=== PATIENT | male | born 1965 | race African-American/Black ===

== ENCOUNTER 2018-07-12 17:59 | Inpatient (IN) | payer OTHER ==
--- NOTE | 2018-07-12 18:22 | PDOC ---
Rapid Medical Evaluation Time Seen by Provider: 07/12/18 18:20 Medical Evaluation: Allergies Allergy/AdvReac Type Severity Reaction Status Date / Time Iodinated Contrast- Oral and Allergy Verified 07/12/18 18:21 IV Dye iodine Allergy Verified 07/12/18 18:21 07/12/18 18:21 I performed a brief in-person evaluation of this patient. Chief complaint: Splinter x >1 month left 4th finger swelling, abnormal xray today directed to come to ED Pertinent physical exam findings: Left distal phalanx swelling and discoloration I have ordered the following: None Patient to proceed to the ED for further evaluation. 07/12/18 18:22 Discharge Disposition - Diagnosis Foreign body (FB) in soft tissue - Referrals Referrals: Alia Ontiveros MD [Primary Care Provider] - - Patient Instructions - Post Discharge Activity
--- NOTE | 2018-07-12 19:22 | PDOC ---
Attending Attestation - HPI HPI: The patient is a 53 year old male, with a significant PMH of HTN, who presents to the emergency department today complaining of left fourth digit swelling. Patient reports getting a splinter in this finger 5 months ago, which was never properly removed. He endorses swelling, bleeding, and mild paresthesia. Patient s PCP referred him to come to the ED to have an X-Ray of his finger. The patient denies chest pain, shortness of breath, headache and dizziness. Denies fever, chills, nausea, vomit, diarrhea and constipation. Denies dysuria, frequency, urgency and hematuria. Allergies: Iodine Past surgical history: None reported Social history: Occasional EtOh consumption PCP: Dr. Alia Ontiveros 07/12/18 20:49 - Physicial Exam PE: GENERAL: The patient is in no acute distress. HEAD: Normal with no signs of trauma. EYES: PERRLA, EOMI, sclera anicteric, conjunctiva clear. ENT: Ears normal, nares patent, oropharynx clear without exudates. Moist mucous membranes. NECK: Normal range of motion, supple without lymphadenopathy, JVD, or masses. LUNGS: Breath sounds equal, clear to auscultation bilaterally. No wheezes, and no crackles. HEART:Regular rate and rhythm, normal S1 and S2 without murmur, rub or gallop. ABDOMEN: Soft, nontender, normoactive bowel sounds. No guarding, no rebound. No masses palpable. EXTREMITIES: +4th left distal phalanx approximately 3 its normal size with distal puncture wound. Normal range of motion. No cyanosis. No erythema, or tenderness. NEUROLOGICAL: Cranial nerves II through XII grossly intact. Normal speech. No focal neurological deficits. MUSCULOSKELETAL: Back non-tender to palpation, no CVA tenderness SKIN: Warm, Dry, normal turgor, no rashes or lesions noted. 07/12/18 20:49 - Medical Decision Making Documentation prepared by DIMAS Pat, acting as medical/surgery registered nurse for Elin Norman MD. 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 He was seen by his PMD who attempted to I & D and remove the splinter but was unsuccessful The wound was non healing No fevers or chills Was seen at urgent care 2 days ago, where he was told that his finger could not have an infection because it did not hurt and there was no expressible purulence Was sent to radiology for outpatient Xray Sent to the ER once images seen PMD: [facility] 07/12/18 21:05 EKG - NSR rate of 94 bpm, axis nml, intervals nml, no st elevation or depression , t wave inversion III, aVF 07/12/18 21:07 Laboratory Tests 07/12/18 07/12/18 07/12/18 19:30 19:30 19:30 WBC 10.4 H Hgb 16.2 Hct 47.1 Plt Count 241 ESR INR 0.92 BUN 19 H Creatinine 1.1 C-Reactive Protein 07/12/18 07/12/18 19:30 19:30 WBC Hgb Hct Plt Count ESR 9 INR BUN Creatinine C-Reactive Protein < 0.3 Vanc/Cefepime Admit to treat for Osteomyelitis <Elin Norman - Last Filed: 07/14/18 00:12>
--- NOTE | 2018-07-12 20:02 | PDOC ---
History of Present Illness - General Chief Complaint: Injury Stated Complaint: Injury Time Seen by Provider: 07/12/18 18:20 History Source: Patient Exam Limitations: No Limitations - History of Present Illness Initial Comments: 07/12/18 19:58 Pt is a 53yo M with PMH of HTN presenting to ED for L fourth digit swelling. Pt states that about 5 months ago he got a splinter in his finger, he could not find it or take it out so he let it be. He states that the finger started to swell and bleed. He would put liquid bandages on it to stop the bleeding. He went to his PMD office who had him come here for xray of the finger. Pt states he was told by the radiologist to come to the emergency room. Pt endorses some numbness. He denies pain, decreased ROM, fevers, chills, abdominal pain, sob, chest pain, cough, headaches, other joint pain, rashes. PMD: [facility] PMH: htn PSH: none Meds: amlodipine Allergies: iodine Social: occasional alcohol use Past History - Past Medical History Allergies/Adverse Reactions: Allergies Allergy/AdvReac Type Severity Reaction Status Date / Time Iodinated Contrast- Oral and Allergy Verified 07/12/18 18:21 IV Dye iodine Allergy Verified 07/12/18 18:21 Home Medications: Ambulatory Orders Amlodipine Besylate 10 mg PO DAILY 07/12/18 COPD: No HTN: Yes - Immunization History Immunization Up to Date: Yes - Suicide/Smoking/Psychosocial Hx Smoking History: Never smoked Hx Alcohol Use: No Drug/Substance Use Hx: No Review of Systems - Review of Systems Constitutional: No: Chills, Fever HEENTM: No: Symptoms Reported Respiratory: No: Cough, Shortness of Breath Cardiac (ROS): No: Chest Pain, Lightheadedness, Palpitations, Syncope ABD/GI: No: Symptoms Reported : No: Symptoms Reported Musculoskeletal: Yes: See HPI, Other (L 4th digit tip sweling, numbness) Integumentary: Yes: See HPI Neurological: Yes: See HPI *Physical Exam - Vital Signs Last Vital Signs Temp Pulse Resp BP Pulse Ox 98.2 F 110 H 16 156/103 H 98 07/12/18 18:21 07/12/18 18:21 07/12/18 18:21 07/12/18 18:21 07/12/18 18:21 - Physical Exam General Appearance: Yes: Nourished, Appropriately Dressed. No: Apparent Distress HEENT: positive: EOMI, ESHA Neck: positive: Trachea midline, Supple. 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, Fully Oriented, Alert, Normal Mood/ Affect, Normal Response, Motor Strength 5/5 Moderate Sedation - Procedure Monitoring Vital Signs: Procedure Monitoring Vital Signs Temperature 98.2 F 07/12/18 18:21 Pulse Rate 110 H 07/12/18 18:21 Respiratory Rate 16 07/12/18 18:21 Blood Pressure 156/103 H 07/12/18 18:21 O2 Sat by Pulse Oximetry (%) 98 07/12/18 18:21 ED Treatment Course - LABORATORY CBC & Chemistry Diagram: 07/12/18 19:30 07/12/18 19:30 - RADIOLOGY Radiology Studies Ordered: Category Date Time Status CHEST X-RAY PORTABLE* [RAD] Stat Radiology 07/12/18 19:24 Ordered Medical Decision Making - Medical Decision Making 07/12/18 20:02 Pt is a 53yo M with PMH of HTN presenting to ED for L fourth digit swelling. Pt states that about 5 months ago he got a splinter in his finger, he could not find it or take it out so he let it be. He states that the finger started to swell and bleed. He would put liquid bandages on it to stop the bleeding. He went to his PMD office who had him come here for xray of the finger. Pt states he was told by the radiologist to come to the emergency room. Pt endorses some numbness. He denies pain, decreased ROM, fevers, chills, abdominal pain, sob, chest pain, cough, headaches, other joint pain, rashes. Vitals: tachycardia PE: swelling and paleness of L fourth digit with punctate wound covered by scab. Xray showed osteomyelitis v. proliferative lesion. -partial sepsis workup -vanc, cefepime -admit *DC/Admit/Observation/Transfer Diagnosis at time of Disposition: Osteomyelitis Qualifiers: Osteomyelitis type: unspecified type Osteomyelitis location: other site Qualified Code(s): M86.9 - Osteomyelitis, unspecified - Discharge Dispostion Condition at time of disposition: Good Decision to Admit order: Yes - Referrals - Patient Instructions - Post Discharge Activity
[2018-07-12 20:10] LABS: BASO % 0.7 % (0-2.0); EOS % 3.1 % (0-4.5); HEMATOCRIT 47.1 % (35.4-49); HEMOGLOBIN 16.2 GM/dL (11.7-16.9); LYMPH % 32.9 % (8-40); MCH 30.7 pg (25.7-33.7); MCHC 34.3 g/dl (32.0-35.9); MEAN CELL VOLUME 89.6 fl (80-96); MONO % 8.6 % (3.8-10.2); NEUT % 54.7 % (42.8-82.8); PLATELET COUNT 241 K/MM3 (134-434); RBC 5.26 M/mm3 (4.00-5.60); RDW 13.8 % (11.9-15.9); WHITE BLOOD COUNT 10.4 K/mm3 (4.0-10.0)
[2018-07-12] MEDS ORDERED: VANCOMYCIN 1 GM in D5W (PRE-DOCKED) 1,000 MG/250 ML IVPB ONE (20:19)
[2018-07-12] MEDS ORDERED: LACTATED RINGERS SOLUTION 1000 ML INFUS.BAG IV ONE (20:19)
[2018-07-12] MEDS ORDERED: CEFEPIME HCL/D5W 2 GM/50 ML BAG IVPB ONE (20:20)
[2018-07-12 20:29] LABS: INR 0.92 (0.83-1.09); PROTHROMBIN TIME (PATIENT) 10.9 SEC (9.7-13.0)
[2018-07-12 20:31] LABS: ACTIVATED PTT 31.7 SECONDS (25.2-36.5)
[2018-07-12] MEDS ORDERED: VANCOMYCIN 1 GRAM (PRE-DOCKED) 1,000 MG/250 ML BAG IVPB ONE (20:50)
[2018-07-12 21:01] LABS: ALBUMIN 4.1 g/dl (3.4-5.0); ALK PHOS 86 U/L (45-117); ANION GAP 10 MMOL/L (8-16); BILIRUBIN,TOTAL 0.4 mg/dL (0.2-1); BLOOD UREA NITROGEN 19 mg/dL (7-18); CALCIUM 9.1 mg/dL (8.5-10.1); CHLORIDE 106 mmol/L (98-107); CO2 23 mmol/L (21-32); CREATININE 1.1 mg/dL (0.55-1.3); GLUCOSE,RANDOM 92 mg/dL (74-106); POTASSIUM 3.8 mmol/L (3.5-5.1); SGOT/AST 20 U/L (15-37); SGPT/ALT 22 U/L (13-61); SODIUM 139 mmol/L (136-145); TOT PROT 7.9 g/dl (6.4-8.2)
[2018-07-13 03:07] LABS: URINE APPEARANCE CLEAR; URINE BILIRUBIN NEGATIVE (<2.0 mg/dL); URINE COLOR STRAW; URINE GLUCOSE (UA) NEGATIVE (NEGATIVE); URINE KETONE NEGATIVE (NEGATIVE); URINE LEUK ESTERASE NEGATIVE (NEGATIVE); URINE NITRITE NEGATIVE (NEGATIVE); URINE PROTEIN NEGATIVE (NEGATIVE); URINE UROBILINOGEN NEGATIVE mg/dL (0.2-1.0)
[2018-07-13 04:25] VITALS: BMI 33.3
--- NOTE | 2018-07-13 09:53 | HP ---
DATE OF ADMISSION: 07/12/2018 DATE OF DICTATION: 07/13/2018 HISTORY: This is a 53-year-old male known to have hypertension status post orchiectomy left for cancer many years ago. He came to the emergency room. Seen by me before with an infection on the tip of the left index finger. He had a foreign body there a few months ago. At that time, it was treated with antibiotics then he noticed the swelling at the tip of the ring finger. X-ray was done. It showed osteomyelitis, so he came to the ER and got admitted. 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 Not sure why. Not a smoker. No alcohol abuse. PHYSICAL EXAMINATION: Vital Signs: BP 130/80, pulse 72, respirations 20, temperature 98. HEENT: Unremarkable. Neck: Supple. No JVD. Lungs: Clear. Heart: S1, S2 normal. No S3, S4. Abdomen: Soft. Extremities: Legs, no edema. Left hand ring finger, at the tip there is swelling. Also has marking on the middle of the finger. No oozing, pus. DIAGNOSTIC DATA: Lab report: WBC 10.4, hemoglobin 16, platelet count 241. Chemistry: Electrolytes are normal. Creatinine 1.1. Blood sugar 92. C-reactive protein is 0.3. Chest x-ray negative. FINAL DIAGNOSES: 1. Osteomyelitis, left ring finger. 2. Hypertension. PLAN: IV antibiotics. ID consult. We will follow. LUZ GILBERT M.D. [id number]
[2018-07-13] MEDS: CEFAZOLIN 1 GM/D5W 1 GM/50 ML BAG IVPB SCH ×2 (11:25→18:34)
--- NOTE | 2018-07-13 13:14 | EKG ---
Test Reason : Blood Pressure : / mmHG Vent. Rate : 094 BPM Atrial Rate : 094 BPM P-R Int : 124 ms QRS Dur : 092 ms QT Int : 356 ms P-R-T Axes : 048 050 -14 degrees QTc Int : 445 ms NORMAL SINUS RHYTHM POSSIBLE ANTERIOR INFARCT , AGE UNDETERMINED T WAVE ABNORMALITY, CONSIDER INFERIOR ISCHEMIA ABNORMAL ECG WHEN COMPARED WITH ECG OF 15-OCT-2004 01:13, NO SIGNIFICANT CHANGE WAS FOUND Confirmed by MD REINALDO, SAVANA ([id number]) on 07/13/2018 1:14:01 PM Referred By: Confirmed By:SAVANA NAJERA MD
--- NOTE | 2018-07-13 13:56 | CON.ID ---
Consult - History of Present Illness History of Present Illness: 53 y.o. male with PMH of HTN, testicular CA s/p orchiectomy (20 yrs ago), and Lt 5th MC fracture years ago presenting with c/o Lt 4th digit persistent swelling. 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 He tried to remove the splinter without success and did not seek treatment at the time. Pt states that the site would bleed intermittently but there was no purulent drainage. 2 months ago attempt was made to remove splinter but it was unsuccessful. Fingertip remained swollen but no pain/erythema as per pt. He had an Xray of the hand in radiology yesterday which revealed erosion vs. neoplastic lesion at the Lt 4th distal region. He was sent to the ER for further evaluation. Pt is currently alert, denies pain, has been afebrile and without other complaints. - History Source History Provided By: Patient Limitations to Obtaining History: No Limitations - Past Medical History Cardio/Vascular: Yes: HTN Heme/Onc: Yes: Other (testicular CA 20 yrs ago) - Past Surgical History Past Surgical History: Yes: Orchiectomy - Alcohol/Substance Use Hx Alcohol Use: No - Smoking History Smoking history: Never smoked Home Medications - Allergies Allergies/Adverse Reactions: Allergies Allergy/AdvReac Type Severity Reaction Status Date / Time Iodinated Contrast- Oral and Allergy Verified 07/12/18 18:21 IV Dye iodine Allergy Verified 07/12/18 18:21 - Home Medications Home Medications: Ambulatory Orders Amlodipine Besylate 10 mg PO DAILY 07/12/18 Review of Systems - Review of Systems Constitutional: reports: No Symptoms Eyes: reports: No Symptoms HENT: reports: No Symptoms Neck: reports: No Symptoms Cardiovascular: reports: No Symptoms Respiratory: reports: No Symptoms Gastrointestinal: reports: No Symptoms Genitourinary: reports: No Symptoms Breasts: reports: No Symptoms Reported Musculoskeletal: reports: Other (Lt 4th finger swelling) Integumentary: reports: No Symptoms Neurological: reports: No Symptoms Endocrine: reports: No Symptoms Hematology/Lymphatic: reports: No Symptoms Psychiatric: reports: No Symptoms Physical Exam Vital Signs: Vital Signs Temperature 97.9 F 07/13/18 09:21 Pulse Rate 72 07/13/18 09:21 Respiratory Rate 18 07/13/18 09:21 Blood Pressure 126/83 07/13/18 09:21 O2 Sat by Pulse Oximetry (%) 98 07/13/18 08:54 Constitutional: Yes: No Distress, Calm Eyes: Yes: Conjunctiva Clear Cardiovascular: Yes: Regular Rate and Rhythm Respiratory: Yes: CTA Bilaterally Gastrointestinal: Yes: Normal Bowel Sounds, Soft Renal/: Yes: WNL Musculoskeletal: Yes: Other (Lt 4th distal finger swelling with scab at tip, no erythema/warmth/tenderness/fluctuance) Integumentary: Yes: WNL Wound/Incision: Yes: Clean/Dry Neurological: Yes: Alert Labs: CBC, BMP 07/12/18 19:30 07/12/18 19:30 Laboratory Tests 07/12/18 07/12/18 07/12/18 19:30 19:30 19:30 WBC 10.4 H RBC 5.26 Hgb 16.2 Hct 47.1 MCV 89.6 MCH 30.7 MCHC 34.3 RDW 13.8 Plt Count 241 MPV 8.0 Absolute Neuts (auto) 5.7 Neutrophils % 54.7 Lymphocytes % 32.9 Monocytes % 8.6 Eosinophils % 3.1 Basophils % 0.7 Nucleated RBC % 0 ESR PT with INR 10.90 INR 0.92 PTT (Actin FS) 31.7 Sodium 139 Potassium 3.8 Chloride 106 Carbon Dioxide 23 Anion Gap 10 BUN 19 H Creatinine 1.1 Creat Clearance w eGFR 70.29 Random Glucose 92 Lactic Acid Calcium 9.1 Total Bilirubin 0.4 AST 20 ALT 22 Alkaline Phosphatase 86 C-Reactive Protein Total Protein 7.9 Albumin 4.1 Urine Color Urine Appearance Urine pH Ur Specific [place] Urine Protein Urine Glucose (UA) Urine Ketones Urine Blood Urine Nitrite Urine Bilirubin Urine Urobilinogen Ur Leukocyte Esterase 07/12/18 07/12/18 07/12/18 19:30 19:30 19:30 WBC RBC Hgb Hct MCV MCH MCHC RDW Plt Count MPV Absolute Neuts (auto) Neutrophils % Lymphocytes % Monocytes % Eosinophils % Basophils % Nucleated RBC % ESR 9 PT with INR INR PTT (Actin FS) Sodium Potassium Chloride Carbon Dioxide Anion Gap BUN Creatinine Creat Clearance w eGFR Random Glucose Lactic Acid 0.8 Calcium Total Bilirubin AST ALT Alkaline Phosphatase C-Reactive Protein < 0.3 Total Protein Albumin Urine Color Urine Appearance Urine pH Ur Specific [place] Urine Protein Urine Glucose (UA) Urine Ketones Urine Blood Urine Nitrite Urine Bilirubin Urine Urobilinogen Ur Leukocyte Esterase 07/13/18 07/13/18 02:30 02:30 WBC RBC Hgb Hct MCV MCH MCHC RDW Plt Count MPV Absolute Neuts (auto) Neutrophils % Lymphocytes % Monocytes % Eosinophils % Basophils % Nucleated RBC % ESR PT with INR INR PTT (Actin FS) Sodium Potassium Chloride Carbon Dioxide Anion Gap BUN Creatinine Creat Clearance w eGFR Random Glucose Lactic Acid 0.8 Calcium Total Bilirubin AST ALT Alkaline Phosphatase C-Reactive Protein Total Protein Albumin Urine Color Straw Urine Appearance Clear Urine pH 6.0 Ur Specific [place] 1.012 Urine Protein Negative Urine Glucose (UA) Negative Urine Ketones Negative Urine Blood Negative Urine Nitrite Negative Urine Bilirubin Negative Urine Urobilinogen Negative Ur Leukocyte Esterase Negative Imaging - Results X-ray: Report Reviewed Problem List - Problems (1) Osteomyelitis Code(s): M86.9 - OSTEOMYELITIS, UNSPECIFIED Qualifiers: Osteomyelitis type: unspecified type Osteomyelitis location: other site Qualified Code(s): M86.9 - Osteomyelitis, unspecified Assessment/Plan 53 y.o. male with PMH of HTN, Testicular CA 20 yrs ago, Hx of Lt 5th MC fracture presenting with Lt 4th finger persistent edema post puncture wound possibly from a splinter 5 months ago Likely Lt 4th distal finger Chronic OM HTN -- continue antibiotics empirically -- consider MRI hand Will follow Thank you
[2018-07-14] MEDS: CEFAZOLIN 1 GM/D5W 1 GM/50 ML BAG IVPB SCH ×3 (01:30→17:21)
--- NOTE | 2018-07-14 13:22 | PN ---
Progress Note, Physician History of Present Illness: Pt is alert, without new complaints. Denies pain in finger. Remains afebrile. Tolerating antibiotics. - Current Medication List Current Medications: Active Medications Cefazolin Sodium (Ancef 1 Gm Premixed Ivpb -) 1 gm in 50 mls @ 100 mls/hr IVPB Q8H-IV SILVANA Last Admin: 07/14/18 09:25 Dose: 100 mls/hr - Objective Vital Signs: Vital Signs Temperature 97.8 F 07/14/18 08:56 Pulse Rate 82 07/14/18 08:56 Respiratory Rate 17 07/14/18 09:00 Blood Pressure 126/76 07/14/18 08:56 O2 Sat by Pulse Oximetry (%) 99 07/14/18 09:00 Constitutional: Yes: No Distress, Calm Cardiovascular: Yes: Regular Rate and Rhythm Respiratory: Yes: Regular Extremities: Yes: Other (Lt 4th distal finger edema, no erythema/tenderness/ warmth/drainage) Neurological: Yes: Alert Labs: CBC, BMP 07/12/18 19:30 07/12/18 19:30 INR, PTT INR 0.92 (0.83-1.09) 07/12/18 19:30 ESR - 9 - ....Imaging X-ray: Report Reviewed Problem List - Problems (1) Osteomyelitis Code(s): M86.9 - OSTEOMYELITIS, UNSPECIFIED Qualifiers: Osteomyelitis type: unspecified type Osteomyelitis location: other site Qualified Code(s): M86.9 - Osteomyelitis, unspecified Assessment/Plan 53 y.o. male with PMH of HTN, Testicular CA 20 yrs ago, Hx of Lt 5th MC fracture presenting with Lt 4th finger persistent edema post puncture wound possibly from a splinter 5 months ago Likely Lt 4th distal finger Chronic OM HTN -- continue antibiotics empirically -- MRI Lt hand and decide on further management d/w PMD, agrees with above
--- NOTE | 2018-07-14 13:47 | PN ---
Progress Note, Physician History of Present Illness: Case discussed with ID may need trt for 1month IV antibiotics - Current Medication List Current Medications: Active Medications Cefazolin Sodium (Ancef 1 Gm Premixed Ivpb -) 1 gm in 50 mls @ 100 mls/hr IVPB Q8H-IV SILVANA Last Admin: 07/14/18 09:25 Dose: 100 mls/hr - Objective Vital Signs: Vital Signs Temperature 97.8 F 07/14/18 08:56 Pulse Rate 82 07/14/18 08:56 Respiratory Rate 17 07/14/18 09:00 Blood Pressure 126/76 07/14/18 08:56 O2 Sat by Pulse Oximetry (%) 99 07/14/18 09:00 Constitutional: Yes: No Distress Eyes: Yes: WNL HENT: Yes: WNL Neck: Yes: WNL Cardiovascular: Yes: WNL Respiratory: Yes: WNL Gastrointestinal: Yes: WNL ...Rectal Exam: Yes: Deferred Genitourinary: Yes: WNL Musculoskeletal: Yes: WNL Labs: CBC, BMP 07/12/18 19:30 07/12/18 19:30 INR, PTT INR 0.92 (0.83-1.09) 07/12/18 19:30 Assessment/Plan Continue same trt
[2018-07-15] MEDS: CEFAZOLIN 1 GM/D5W 1 GM/50 ML BAG IVPB SCH ×3 (02:14→17:34)
--- NOTE | 2018-07-15 09:44 | PN ---
Progress Note, Physician Chief Complaint: Feels OK History of Present Illness: scheduled for MRI of the finger - Current Medication List Current Medications: Active Medications Cefazolin Sodium (Ancef 1 Gm Premixed Ivpb -) 1 gm in 50 mls @ 100 mls/hr IVPB Q8H-IV SILVANA Last Admin: 07/15/18 02:14 Dose: 100 mls/hr - Objective Vital Signs: Vital Signs Temperature 97.5 F L 07/15/18 08:51 Pulse Rate 70 07/15/18 08:51 Respiratory Rate 16 07/15/18 08:51 Blood Pressure 126/75 07/15/18 08:51 O2 Sat by Pulse Oximetry (%) 97 07/14/18 21:00 Constitutional: Yes: No Distress Eyes: Yes: WNL HENT: Yes: WNL Neck: Yes: WNL Cardiovascular: Yes: WNL Respiratory: Yes: WNL Gastrointestinal: Yes: WNL ...Rectal Exam: Yes: Deferred Genitourinary: Yes: WNL Edema: No Neurological: Yes: Alert Labs: CBC, BMP 07/12/18 19:30 07/12/18 19:30 INR, PTT INR 0.92 (0.83-1.09) 07/12/18 19:30 Assessment/Plan Continue antibiotics as per ID
--- NOTE | 2018-07-15 12:06 | PN ---
Progress Note, Physician History of Present Illness: patient stable no new complaints for mri today - Current Medication List Current Medications: Active Medications Cefazolin Sodium (Ancef 1 Gm Premixed Ivpb -) 1 gm in 50 mls @ 100 mls/hr IVPB Q8H-IV SILVANA Last Admin: 07/15/18 09:56 Dose: 100 mls/hr - Objective Vital Signs: Vital Signs Temperature 97.5 F L 07/15/18 08:51 Pulse Rate 70 07/15/18 08:51 Respiratory Rate 16 07/15/18 08:51 Blood Pressure 126/75 07/15/18 08:51 O2 Sat by Pulse Oximetry (%) 97 07/14/18 21:00 Constitutional: Yes: No Distress, Calm Cardiovascular: Yes: Regular Rate and Rhythm Respiratory: Yes: Regular, CTA Bilaterally Gastrointestinal: Yes: Normal Bowel Sounds, Soft Musculoskeletal: Yes: WNL Extremities: Yes: Other (swelling of the finger) Neurological: Yes: Alert, Oriented Psychiatric: Yes: Alert, Oriented Labs: CBC, BMP 07/12/18 19:30 07/12/18 19:30 INR, PTT INR 0.92 (0.83-1.09) 07/12/18 19:30 Assessment/Plan Problem List - Problems (1) Osteomyelitis Code(s): M86.9 - OSTEOMYELITIS, UNSPECIFIED Qualifiers: Osteomyelitis type: unspecified type Osteomyelitis location: other site Qualified Code(s): M86.9 - Osteomyelitis, unspecified r/o foreign body in the finger plan await for the hand mri' will see if patient has foreign body if present will warrant removal rest as per the team
[2018-07-15] MEDS ORDERED: ACETAMINOPHEN 325 MG TABLET (FP) PO PRN (18:38)
[2018-07-16] MEDS: CEFAZOLIN 1 GM/D5W 1 GM/50 ML BAG IVPB SCH ×3 (02:03→17:26)
--- NOTE | 2018-07-16 08:22 | PN ---
Progress Note, Physician History of Present Illness: MRI showed soft tissue mass ,advised exploration and biopsy Ostiomylites less likely - Current Medication List Current Medications: Active Medications Acetaminophen (Tylenol -) 650 mg PO Q6H PRN PRN Reason: PAIN SCALE 6-10 Last Admin: 07/15/18 18:40 Dose: 650 mg Cefazolin Sodium (Ancef 1 Gm Premixed Ivpb -) 1 gm in 50 mls @ 100 mls/hr IVPB Q8H-IV SILVANA Last Admin: 07/16/18 02:03 Dose: 100 mls/hr - Objective Vital Signs: Vital Signs Temperature 97.9 F 07/16/18 06:06 Pulse Rate 73 07/16/18 06:06 Respiratory Rate 18 07/16/18 06:06 Blood Pressure 118/76 07/16/18 06:06 O2 Sat by Pulse Oximetry (%) 96 07/15/18 21:00 Constitutional: Yes: No Distress Eyes: Yes: WNL HENT: Yes: WNL Neck: Yes: WNL Cardiovascular: Yes: WNL Respiratory: Yes: WNL Gastrointestinal: Yes: WNL ...Rectal Exam: Yes: WNL Genitourinary: Yes: WNL Extremities: Yes: Other (Lt ring finger swelling remains the same) Labs: CBC, BMP 07/12/18 19:30 07/12/18 19:30 INR, PTT INR 0.92 (0.83-1.09) 07/12/18 19:30 Assessment/Plan Consult hand surgeon Dr Greer
--- NOTE | 2018-07-16 11:28 | CONSULT ---
Consult Consult Specialty:: Hand and Microsurgery Reason for Consultation:: left ring finger - History of Present Illness Chief Complaint: left ring finger mass History of Present Illness: 53 yo LHD male PMH HTN, who presents to the emergency department today complaining of left fourth digit swelling. Patient reports getting a splinter in this finger 5 months ago, which was never properly removed. He endorses swelling, bleeding, and mild paresthesia. Patients PCP referred him to come to the ED to have an X-Ray of his finger. We were called to assess. - History Source History Provided By: Patient, Medical Record Limitations to Obtaining History: No Limitations - Past Medical History Cardio/Vascular: Yes: HTN - Past Surgical History Past Surgical History: Yes: Orchiectomy - Alcohol/Substance Use Hx Alcohol Use: No - Smoking History Smoking history: Never smoked Home Medications - Allergies Allergies/Adverse Reactions: Allergies Allergy/AdvReac Type Severity Reaction Status Date / Time Iodinated Contrast- Oral and Allergy Verified 07/12/18 18:21 IV Dye iodine Allergy Verified 07/12/18 18:21 - Home Medications Home Medications: Ambulatory Orders Amlodipine Besylate 10 mg PO DAILY 07/12/18 Review of Systems - Review of Systems Constitutional: denies: Chills, Fever Eyes: denies: Blind Spots, Recent Change in Vision HENT: denies: Difficult Swallowing, Throat Pain Neck: denies: Pain on Movement, Stiffness Cardiovascular: denies: Chest Pain, Palpitations Respiratory: denies: Cough, SOB Gastrointestinal: denies: Abdominal Pain, Bloating, Constipation, Nausea Genitourinary: denies: Discharge, Dysuria Breasts: reports: No Symptoms Reported. denies: See HPI, Pain, Skin Changes Musculoskeletal: denies: Muscle Cramps, Muscle Weakness Integumentary: denies: Change in Color, Pruritis Neurological: denies: Seizure, Syncope Endocrine: denies: Unexplained Weight Gain, Unexplained Weight Loss Hematology/Lymphatic: denies: Easily Bruised, Excessive Bleeding Psychiatric: denies: Anxiety, Depression Physical Exam Vital Signs: Vital Signs Temperature 97.9 F 07/16/18 06:06 Pulse Rate 73 07/16/18 06:06 Respiratory Rate 18 07/16/18 06:06 Blood Pressure 118/76 07/16/18 06:06 O2 Sat by Pulse Oximetry (%) 96 07/15/18 21:00 Constitutional: Yes: Well Nourished, No Distress, Calm Eyes: Yes: Conjunctiva Clear, EOM Intact HENT: Yes: Atraumatic, Normocephalic Neck: Yes: Supple, Trachea Midline Cardiovascular: Yes: Regular Rate and Rhythm, S1, S2 Respiratory: Yes: Regular, CTA Bilaterally Gastrointestinal: Yes: Normal Bowel Sounds, Soft. No: Tenderness ...Rectal Exam: Yes: Deferred Renal/: No: CVA Tenderness - Left, CVA Tenderness - Right Musculoskeletal: No: Muscle Pain, Muscle Weakness Extremities: Yes: Other (bulbous swelling with a punctum at the tip of the left ring finger girth 3cm. no drauinge or erytrhema). No: Cool, Cyanosis Peripheral Pulses WNL: Yes Wound/Incision: Yes: Clean/Dry, Other. No: Draining, Reddened Neurological: Yes: Alert, Oriented Psychiatric: Yes: Alert, Oriented Labs: CBC, BMP 07/12/18 19:30 07/12/18 19:30 Imaging - Results MRI: Report Reviewed, Image Reviewed (left ring finger mass, tuft erosion) Problem List - Problems (1) Finger, superficial foreign body (splinter), infected Assessment/Plan: 53yo LHD male with a likely left ring finger post traumatic Foreign body granuloma NPO and IVF hydration IV antibiotics OR for excisional biopsy of left ring finger tip Discussed with patient risks, benefits and alternatives of aforementioned procedure, including but not limited to bleeding, infection, injury to adjacent structures, need for further procedures, ; alternatives include antibiotics , delayed or no surgery - risks of this include failure of nonoperative therapy , perforation, sepsis, recurrence, . Patient desires to proceed with operation - will take to OR for above. Informed consent signed for same. Thank you for the opportunity to participate in the care of this patient. Code(s): S60.459A - SUPERFICIAL FOREIGN BODY OF UNSPECIFIED FINGER, INIT ENCNTR ; L08.9 - LOCAL INFECTION OF THE SKIN AND SUBCUTANEOUS TISSUE, UNSP Qualifiers: Encounter type: subsequent encounter Qualified Code(s): S60.459D - Superficial foreign body of unspecified finger, subsequent encounter; L08.9 - Local infection of the skin and subcutaneous tissue, unspecified (2) Granuloma, foreign body, skin Code(s): L92.3 - FOREIGN BODY GRANULOMA OF THE SKIN AND SUBCUTANEOUS TISSUE (3) Osteomyelitis Code(s): M86.9 - OSTEOMYELITIS, UNSPECIFIED Qualifiers: Osteomyelitis type: unspecified type Osteomyelitis location: hand (4) HTN (hypertension) Code(s): I10 - ESSENTIAL (PRIMARY) HYPERTENSION Qualifiers: Hypertension type: essential hypertension Qualified Code(s): I10 - Essential (primary) hypertension
--- NOTE | 2018-07-16 13:55 | PN ---
Progress Note, Physician History of Present Illness: patient stable seen by the hand patient going for the biopsy tomorrow - Current Medication List Current Medications: Active Medications Acetaminophen (Tylenol -) 650 mg PO Q6H PRN PRN Reason: PAIN SCALE 6-10 Last Admin: 07/15/18 18:40 Dose: 650 mg Cefazolin Sodium (Ancef 1 Gm Premixed Ivpb -) 1 gm in 50 mls @ 100 mls/hr IVPB Q8H-IV SILVANA Last Admin: 07/16/18 10:31 Dose: 100 mls/hr - Objective Vital Signs: Vital Signs Temperature 97.9 F 07/16/18 06:06 Pulse Rate 73 07/16/18 06:06 Respiratory Rate 18 07/16/18 06:06 Blood Pressure 118/76 07/16/18 06:06 O2 Sat by Pulse Oximetry (%) 96 07/15/18 21:00 Constitutional: Yes: No Distress, Calm Cardiovascular: Yes: Regular Rate and Rhythm Respiratory: Yes: Regular, CTA Bilaterally Gastrointestinal: Yes: Normal Bowel Sounds, Soft Musculoskeletal: Yes: WNL Extremities: Yes: WNL Neurological: Yes: Alert, Oriented Psychiatric: Yes: Alert, Oriented Labs: CBC, BMP 07/12/18 19:30 07/12/18 19:30 INR, PTT INR 0.92 (0.83-1.09) 07/12/18 19:30 Assessment/Plan Problem List - Problems (1) Osteomyelitis Code(s): M86.9 - OSTEOMYELITIS, UNSPECIFIED Qualifiers: Osteomyelitis type: unspecified type Osteomyelitis location: other site Qualified Code(s): M86.9 - Osteomyelitis, unspecified r/o foreign body in the finger r/o malignancy of the finger plan await for biopsy will stop abx after the biopsy
[2018-07-16] MEDS ORDERED: PT OWN MED DRAWER 7, Y5N ONE (16:59)
[2018-07-17] MEDS: CEFAZOLIN 1 GM/D5W 1 GM/50 ML BAG IVPB SCH (01:23)
[2018-07-17] MEDS ORDERED: SODIUM CHLORIDE 0.9% P/F 10 ML VIAL IJ ONE (07:18)
[2018-07-17] MEDS ORDERED: LIDOCAINE HCL/PF 2% SDV 5ML VIAL ONE (07:18)
[2018-07-17] MEDS ORDERED: ceFAZolin SODIUM 1 GM VIAL ONE (07:18)
[2018-07-17] MEDS ORDERED: MIDAZOLAM HCL 2 MG/2 ML SINGLE DOSE VIAL ONE (07:24)
[2018-07-17] MEDS ORDERED: LIDOCAINE HCL 1%, 10 MG/ML (20ML VIAL) ONE (07:28)
[2018-07-17] MEDS ORDERED: ceFAZolin SODIUM 1 GM VIAL IVPB ONE (07:52)
[2018-07-17] MEDS ORDERED: BUPIVACAINE HCL/PF 0.5% (5MG/ML) 10 ML VIAL ONE (07:52)
[2018-07-17] MEDS ORDERED: LIDOCAINE HCL 1%, 10 MG/ML (50 mL VIAL) IJ ONE (07:59)
[2018-07-17] MEDS ORDERED: PROPOFOL 20 ML ONE (08:04)
[2018-07-17] MEDS ORDERED: BUPIVACAINE HCL/PF (5 MG/ML) 30 ML VIAL IJ ONE ×2 (08:14)
--- NOTE | 2018-07-17 08:29 | OP ---
Operative Note - Note: Operative Date: 07/17/18 Pre-Operative Diagnosis: left ring finger mass Operation: excisional biopsy left ring finger mass Findings: left ring finger foreign body graunloma Post-Operative Diagnosis: Same as Pre-op Surgeon: Ben Greer Anesthesiologist/SCIENTIFIC HELPER: Armaan Collier Anesthesia: Local (1% lidocaine 10ml and 0.5% marcaine 9ml ), MAC Specimens Removed: left ring finger mass Estimated Blood Loss (mls): 2 Instrument used (Debridements only): rongeur Fluid Volume Replaced (mls): 200 Operative Report Dictated: Yes
[2018-07-17] MEDS ORDERED: ACETAMINOPHEN 325 MG TABLET (FP) PO PRN (08:49)
--- NOTE | 2018-07-17 09:45 | OP ---
DATE OF OPERATION: 07/17/2018 PREOPERATIVE DIAGNOSIS: Left ring finger mass. POSTOPERATIVE DIAGNOSIS: Left ring finger mass. PROCEDURE: Excisional biopsy, left ring finger mass. ATTENDING SURGEON: Ben Greer MD ADJUNCT PHYSICS INSTRUCTOR: No one. APARTMENT LEASING MANAGER: Armaan Collier CRNA ANESTHESIA TYPE: Local with MAC. Local consisted of 0.5% Marcaine 9 mL and 1% lidocaine 10 mL in a digital block fashion. ESTIMATED BLOOD LOSS: 2 mL. INTRAVENOUS FLUID ADMINISTERED: Crystalloid 200 mL. INSTRUMENT USED FOR DEBRIDEMENT: Rongeur. SPECIMEN: Left ring finger mass. BRIEF FINDINGS: Patient appeared to have a left ring finger foreign body granuloma with a punctum that was clear at the tip of the left ring finger. No foreign body was easily identified. INDICATION: Patient is a 53-year-old male with a history of a traumatic injury to the left ring fingertip. A splinter was removed he thought in its entirety. Developed a diffuse bulbous swelling of the tip of the ring finger. It was painful. He was counseled regarding risks, benefits and alternatives of surgical excisional biopsy after an MRI revealed a soft tissue mass. Signed informed consent. Was taken for the procedure. PROCEDURE: Patient was brought to the operating room, placed in the supine position on the operating table. SCDs were placed to compression. Patient received intravenous antibiotics in the form of Ancef 1 g preoperatively. Was induced with sedation. Provided with supplemental oxygen by Anesthesia. When stable a formal timeout was completed identifying the operative site and procedure with the mitchell apparent. With all parties in agreement we began with a fishmouth incision at the tip of the left ring finger. This was after a digital block was applied in the form of lidocaine 10 mL. We began with a Dolton drain to occlude the blood flow to the finger. With this in place the fishmouth incision was incised with a 15-blade scalpel, deepened in line through the subcutaneous tissue. Care was taken to dissect down to what appeared to be a gelatinous mass amongst the pad's tissue. This was debrided in its entirety with a Romeo blade and 15. Hemostasis was obtained using Bovie cautery. It was cored out from its base and then a rongeur was used to debride the remainder of the mass from the area. The mass was sent in piecemeal fashion for pathologic diagnosis. The patient had the area irrigated with sterile irrigation fluid until clear. The fishmouth incision was then repaired using 4-0 nylon in interrupted fashion along the length of the incision approximating its length. Xeroform, 4 x 4 gauze pads and Maggie wrap were used to apply a sterile dressing after the finger was cleaned. Patient was awoken from anesthesia having tolerated the procedure well, stable throughout the procedure. Counts were correct at the conclusion of the case. MD GARRETT Ruiz/[id number]
--- NOTE | 2018-07-17 09:46 | DS ---
Physical Examination Vital Signs: Vital Signs Temperature 97 F L 07/17/18 08:55 Pulse Rate 73 07/17/18 08:55 Respiratory Rate 18 07/17/18 08:55 Blood Pressure 103/75 07/17/18 08:55 O2 Sat by Pulse Oximetry (%) 99 07/17/18 08:40 Findings/Remarks: L ring finger surgery done Constitutional: Yes: No Distress Eyes: Yes: WNL HENT: Yes: WNL Neck: Yes: WNL Cardiovascular: Yes: WNL Respiratory: Yes: WNL Gastrointestinal: Yes: WNL ...Rectal Exam: Yes: Deferred Renal/: Yes: WNL Musculoskeletal: Yes: WNL Edema: No Neurological: Yes: Alert ...Motor Strength: WNL Labs: CBC, BMP 07/12/18 19:30 07/12/18 19:30 Discharge Summary Reason For Visit: OSTEOMYELITIS Current Active Problems Finger, superficial foreign body (splinter), infected (Acute) Granuloma, foreign body, skin (Acute) HTN (hypertension) (Acute) Osteomyelitis (Acute) Condition: Improved - Instructions Diet, Activity, Other Instructions: Postoperative instructions: You had a left finger finger mass on 07/17/[address] Ben Greer of [facility]. Activity: Resume your usual activities gradually, but no heavy exertion or lifting more than 10-15 pounds for 4-6 weeks. Please keep dressing clean and dry until follow-up Eat lightly at first, but advance to your usual diet as tolerated. Pain: For pain, you may use and alternate Tylenol (acetaminophen) 1-2 pills and/ or ibuprofen 200 mg (1-3 pills) every 6 hours each as needed; this means that you can take one OR the other at 3-hour intervals. If you are prescribed a Tylenol/narcotic combination for severe pain, use it instead of plain Tylenol as needed and switch back when your pain starts decreasing. Do not take more than 4000 mg of acetaminophen in a day. Take medications as prescribed or indicated on the labeling. Follow-up: Call Dr. Lisa's office at [phone] to make your postop appointment (Sunday in approximately 2 weeks after surgery as advised). Clinic is held in the [facility] on the first floor of [facility]. Call the office if you have: * increasing pain not responsive to pain medication * fever of 101F or higher * unusual or increasing bleeding or drainage from wounds * increasing redness or swelling at wound sites Also, see your primary medical doctor within 1-2 weeks. Disposition: HOME - Home Medications Comprehensive Discharge Medication List: Ambulatory Orders Amlodipine Besylate 10 mg PO DAILY 07/12/18
[2018-07-17] MEDS ORDERED: CEFAZOLIN 1 GM/D5W 1 GM/50 ML BAG IVPB SCH (10:00)
--- NOTE | 2018-07-17 12:41 | PN ---
Progress Note, Physician History of Present Illness: patient doing well discussed with surgery foreign body granuloma - Current Medication List Current Medications: Active Medications Acetaminophen (Tylenol -) 650 mg PO Q6H PRN PRN Reason: PAIN SCALE 6-10 Cefazolin Sodium (Ancef 1 Gm Premixed Ivpb -) 1 gm in 50 mls @ 100 mls/hr IVPB Q8H-IV SILVANA Last Admin: 07/17/18 10:11 Dose: Not Given - Objective Vital Signs: Vital Signs Temperature 97 F L 07/17/18 08:55 Pulse Rate 73 07/17/18 08:55 Respiratory Rate 18 07/17/18 08:55 Blood Pressure 103/75 07/17/18 08:55 O2 Sat by Pulse Oximetry (%) 99 07/17/18 08:40 Constitutional: Yes: No Distress, Calm Cardiovascular: Yes: Regular Rate and Rhythm Respiratory: Yes: Regular, CTA Bilaterally Gastrointestinal: Yes: Normal Bowel Sounds, Soft Musculoskeletal: Yes: WNL Extremities: Yes: WNL Wound/Incision: Yes: Dressing Dry and Intact Neurological: Yes: Alert, Oriented Psychiatric: Yes: Alert, Oriented Labs: CBC, BMP 07/12/18 19:30 07/12/18 19:30 INR, PTT INR 0.92 (0.83-1.09) 07/12/18 19:30 Assessment/Plan Problem List - Problems (1) Osteomyelitis Code(s): M86.9 - OSTEOMYELITIS, UNSPECIFIED Qualifiers: Osteomyelitis type: unspecified type Osteomyelitis location: other site Qualified Code(s): M86.9 - Osteomyelitis, unspecified r/o foreign body in the finger r/o malignancy of the finger plan patient post surgery foreign body granuloma will give abx for 3 more days no new issues
[2018-07-17 13:23] VITALS: BP 113/84; PULSE 76; TEMP 97.6
--- NOTE | 2018-07-18 16:38 | PATH ---
Surgical Pathology Report Patient Name: JENIFFER GORDON Med. Rec. #: [id number] /Age/Gender: 1965 (Age: 53) / M Account: [id number] Location: [facility] MED/SURG Taken: 07/17/2018 Received: 07/17/2018 Reported: 07/18/2018 Physicians: Nick Ruiz M.D. Specimen(s) Received LEFT RING FINGER MASS Clinical History Left ring finger mass Final Diagnosis RING FINGER MASS, LEFT, EXCISION: LOBULAR CAPILLARY HEMANGIOMA. Electronically Signed Gertrudis Mcclendon M.D. Gross Description Received in formalin labeled "left ring finger mass" is an ellipse of skin and underlying lesion measuring 1.7 x 0.7 x 0.5 cm. There is a central depressed lesion on the surface of the skin measuring 0.4 cm in diameter, 0.2 cm from closest radial margin. Cut section shows a hemorrhagic, lobulated and friable lesion measuring 0.7 x 0.5 x 0.4 cm. The entire specimen is submitted in 2 cassettes as follows: One-bisected skin ellipse and underlying lesion, 2-fragments of lesion MLSZ/07/17/2018 san/07/17/2018
== END 2018-07-17 14:21 | disposition home or self-care (01) | DRG 541 ==
LOC: JER 17:59 → JERBED 22:31 → J7W 07-13 04:30
PROVIDERS: ADMIT Internal Medicine; ATTEND Internal Medicine
PROC: 0JBK0ZX Excision of Left Hand Subcutaneous Tissue and Fascia, Open Approach, Diagnostic (ICD-10-PCS; principal; 2018-07-17 08:00)
DX: M86.8X4 Other osteomyelitis, hand (principal); I10 Essential (primary) hypertension; S60.459D Superficial foreign body of unspecified finger, subsequent encounter; L08.9 Local infection of the skin and subcutaneous tissue, unspecified; L92.3 Foreign body granuloma of the skin and subcutaneous tissue
CPT/HCPCS: 36415; 71045-TC-FY; 73218-TC-LT; 80053; 81003; 83605; 85025; 85610; 85651; 85730; 86140; 87040; 87086; 88305-TC; 93005; 93010; 94010; 94760; 99283-25